=== PATIENT | male | born 1970 ===

== ENCOUNTER 2016-08-02 19:18 | Emergency (ER) | payer BC ==
[2016-08-02 19:35] VITALS: BP 160/91; PULSE 81; RESP 17; TEMP 98.5; O2SAT 99
[2016-08-02] MEDS ORDERED: cefTRIAXone (Rocephin) 250 mg Inj IM ONE (21:02)
--- NOTE | 2016-08-02 21:21 | ED PDOC ---
HPI: Male Pain Time Seen by Provider: 08/02/16 20:40 Chief Complaint (Nursing): Male Genitourinary Chief Complaint (Provider): Penile Redness/Swelling History Per: Patient History/Exam Limitations: no limitations Onset/Duration Of Symptoms: Hrs (x5.5) Current Symptoms Are (Timing): Still Present Associated Symptoms: Chills, Diarrhea (1 episode today, non-bloody/non-mucoid), Other (myalgias, pelvic pain; no rash). denies: Nausea, Vomiting, Back Pain, Urinary Symptoms (no dysuria/hematuria/penile d/c) Additional Complaint(s): Tuan Krueger is a 46 year old male, with no pertinent past medical history, who presents to the ED on 08/02/16 for the evaluation of penile erythema/ swelling that he had noted as of approximately 5.5 hours prior to arrival. Some associated chills, pelvic pain and myalgias (especially within the lower legs) also reported in addition to 1 episode of non-bloody/non-mucoid diarrhea that he had experienced earlier today. Denies fever, rash, back pain, nausea, vomiting, dysuria, frequency, hematuria or penile discharge. No analgesics taken prior to arrival. Of note, patient reports having engaged in a protected, 1 night stand last night with another woman whom he is not familiar with. He also regularly has unprotected sex with his . PMD: goes to [facility] as needed but no regular PMD Past Medical History Reviewed: Historical Data, Nursing Documentation, Vital Signs Vital Signs: Last Vital Signs Temp 98.5 F 08/02/16 19:31 Pulse 81 08/02/16 19:31 Resp 17 08/02/16 19:31 BP 160/91 H 08/02/16 19:31 Pulse Ox 99 08/02/16 19:31 - Medical History PMH: No Chronic Diseases - Surgical History Surgical History: No Surg Hx - Family History Family History: States: Diabetes - Living Arrangements Living Arrangements: With Family - Social History Current smoker - smoking cessation education provided: No Alcohol: None Drugs: Denies - Home Medications Home Medications: Ambulatory Orders Medication Instructions Recorded Acyclovir [Zovirax] 400 mg PO 5XD #50 tablet 08/02/16 Clotrimazole 1% Cream [Lotrimin 1%] 30 applic TOP BID #1 tube 08/02/16 Ibuprofen [Motrin Tab] 600 mg PO Q8 PRN #60 tab 08/02/16 - Allergies Allergies/Adverse Reactions: Allergies Allergy/AdvReac Type Severity Reaction Status Date / Time No Known Allergies Allergy Verified 08/02/16 19:35 Review of Systems ROS Statement: Except As Marked, All Systems Reviewed And Found Negative Constitutional: Positive for: Chills, Other (myalgias (especially within lower legs)) Gastrointestinal: Positive for: Diarrhea (1 episode today, non-bloody/non-mucoid ). Negative for: Nausea, Vomiting Genitourinary Male: Positive for: Other (penile swelling/erythema, pelvic pain) . Negative for: Dysuria, Frequency, Hematuria, Penile Discharge Skin: Negative for: Rash Physical Exam - Reviewed Nursing Documentation Reviewed: Yes Vital Signs Reviewed: Yes - Physical Exam Appears: Positive for: Well, Non-toxic, In Acute Distress (mild painful) Skin: Positive for: Normal Color, Warm, Dry. Negative for: Rash Gastrointestinal/Abdominal: Positive for: Soft, Tenderness (suprapubic). Negative for: Mass, Distended, Guarding, Rebound Male Genital Exam: Positive for: erythema (edema/erythema noted at base of glans w/some erythema also noted to glans itself; no outright rash or palpable mass), other (Examination chaperoned by Annabel Moreira RN). Negative for: testicular tenderness (R), testicular tenderness (L), urethral discharge Extremity: Positive for: Normal ROM (of b/l LE). Negative for: Deformity, Swelling Lymphatic: Positive for: Adenopathy (b/l inguinal, tender to palpation) Neurologic/Psych: Positive for: Alert, Oriented - Laboratory Results Result Diagrams: 08/02/16 22:00 08/02/16 22:00 - ECG O2 Sat by Pulse Oximetry: 99 (RA) Pulse Ox Interpretation: Normal Medical Decision Making Medical Decision Makin:40 Initial Impression: balanitis, posible STD Initial Plan: * Labs * Udip * RPR * Rapid HIV * Chlamydia/GC RNA * HSV 1/2(IGG), HSV (IGM) w/RF * Zithromax 1000mg PO * Rocephin 250mg PO * Motrin 600mg PO * Tylenol 975mg PO * Reevaluation Scribe Attestation: Documented by Malia Hernandez, acting as a scribe for Adrianne Tineo MD. Provider Scribe Attestation: All medical record entries made by the Scribe were at my direction and personally dictated by me. I have reviewed the chart and agree that the record accurately reflects my personal performance of the history, physical exam, medical decision making, and the department course for this patient. I have also personally directed, reviewed, and agree with the discharge instructions and disposition. Disposition - Clinical Impression Clinical Impression: Balanitis, Possible exposure to STD Counseled Patient/Family Regarding: Studies Performed, Diagnosis, Need For Followup, Rx Given - Disposition Disposition: Routine/Home Disposition Time: 22:00 Condition: IMPROVED Additional Instructions: YOU WILL BE CALLED IF YOUR RESULTS ARE ABNORMAL Prescriptions: Acyclovir [Zovirax] 400 mg PO 5XD #50 tablet Clotrimazole 1% Cream [Lotrimin 1%] 30 applic TOP BID #1 tube Ibuprofen [Motrin Tab] 600 mg PO Q8 PRN #60 tab PRN Reason: Pain, Moderate (4-7) Instructions: Safe Sex (ED), Balanitis (ED)
[2016-08-02] MEDS ORDERED: cefTRIAXone (Rocephin) 250 mg Inj ONE (21:25)
[2016-08-02] MEDS ORDERED: Sterile Water 10 ML IV ONE (21:26)
[2016-08-02 22:06] LABS: BASO # 0.1 K/uL (0.0-0.2); BASO % 0.7 % (0.0-2.0); EOS # 0.2 K/uL (0.0-0.7); EOS % 1.4 % (0.0-4.0); LYMPH # 0.9 K/uL (1.0-4.3); LYMPH % 7.5 % (20.0-40.0); MEAN CELL VOLUME 86.7 fl (80.0-94.0); MEAN CORPUSCULAR HEMOGLOBIN 29.7 pg (27.0-31.0); MEAN CORPUSCULAR HGB CONC 34.2 g/dL (33.0-37.0); MEAN PLATELET VOLUME 8.2 fl (7.2-11.7); MONO # 0.8 K/uL (0.0-0.8); MONO % 6.2 % (0.0-10.0); NEUT # 10.5 K/uL (1.8-7.0); NEUT % 84.2 % (50.0-75.0); NRBC % 0.1 % (0.0-0.0); PLATELET COUNT 211 K/uL (130-400); RED CELL DISTRIBUTION WIDTH 13.4 % (11.5-14.5); WHITE BLOOD COUNT 12.4 K/uL (4.8-10.8)
[2016-08-02 22:15] LABS: ALB/GLOB RATIO 1.4 (1.0-2.1); ALKALINE PHOSPHATASE 93 U/L (38-126); ALT/SGPT 38 U/L (21-72); AST/SGOT 29 U/L (17-59); BILIRUBIN,TOTAL 0.5 mg/dl (0.2-1.3); BLOOD UREA NITROGEN 14 mg/dl (9-20); CALCIUM 9.1 mg/dL (8.4-10.2); CARBON DIOXIDE 26 mmol/L (22-30); CHLORIDE 99 mmol/L (98-107); GFR AFRICAN-AMERICAN > 60; GLUCOSE,RANDOM 111 mg/dL (75-110); POTASSIUM 3.8 MMOL/L (3.6-5.0); SODIUM 134 mmol/l (132-148); TOTAL PROTEIN 7.2 G/DL (6.3-8.2)
[2016-08-02 22:32] LABS: BASOPHIL 1 % (0-2); EOSINOPHIL 2 % (0-7); NEUTROPHIL 80 % (42-75); TOTAL CELLS COUNTED 100
== END 2016-08-03 02:16 | disposition home or self-care (01) ==
LOC: H.ER 19:18
DX: N48.1 Balanitis (principal)
CPT/HCPCS: 80053; 85025; 86592; 86695; 86696; 87390; 87491; 87591; 96372; 99282; J0696

== ENCOUNTER 2016-08-26 18:15 | Emergency (ER) | payer SELFPAY ==
[2016-08-26 19:34] LABS: BASO % 0.5 % (0.0-2.0); EOS # 0.2 K/uL (0.0-0.7); EOS % 2.3 % (0.0-4.0); HEMATOCRIT 42.8 % (35.0-51.0); LYMPH # 1.5 K/uL (1.0-4.3); LYMPH % 17.9 % (20.0-40.0); MEAN CELL VOLUME 89.4 fl (80.0-94.0); MEAN CORPUSCULAR HEMOGLOBIN 29.9 pg (27.0-31.0); MEAN CORPUSCULAR HGB CONC 33.4 g/dL (33.0-37.0); MEAN PLATELET VOLUME 8.7 fl (7.2-11.7); MONO # 0.6 K/uL (0.0-0.8); MONO % 7.7 % (0.0-10.0); NEUT # 5.9 K/uL (1.8-7.0); NEUT % 71.6 % (50.0-75.0); RED CELL DISTRIBUTION WIDTH 13.3 % (11.5-14.5); WHITE BLOOD COUNT 8.3 K/uL (4.8-10.8)
[2016-08-26 19:48] LABS: ALB/GLOB RATIO 1.6 (1.0-2.1); ALKALINE PHOSPHATASE 66 U/L (38-126); ALT/SGPT 40 U/L (21-72); AST/SGOT 29 U/L (17-59); BILIRUBIN,TOTAL 0.5 mg/dl (0.2-1.3); BLOOD UREA NITROGEN 12 mg/dl (9-20); CALCIUM 9.1 mg/dL (8.4-10.2); CARBON DIOXIDE 24 mmol/L (22-30); CHLORIDE 105 mmol/L (98-107); GFR AFRICAN-AMERICAN > 60; GLUCOSE,RANDOM 97 mg/dL (75-110); POTASSIUM 3.6 MMOL/L (3.6-5.0); SODIUM 139 mmol/l (132-148); TOTAL PROTEIN 7.1 G/DL (6.3-8.2)
[2016-08-26 20:11] LABS: PARTIAL THROMBOPLASTIN TIME 26.6 SECONDS (23.3-32.5)
[2016-08-26 20:49] LABS: RBC URINE 1 /hpf (0-3); URINE BACTERIA RARE (<OCC); URINE BILIRUBIN NEGATIVE (NEGATIVE); URINE BLOOD NEGATIVE (NEGATIVE); URINE COLOR STRAW (YELLOW); URINE GLUCOSE (UA) NEG (Normal); URINE KETONE NEGATIVE (NEGATIVE); URINE LEUKOCYTE ESTERASE NEG Leu/uL (Negative); URINE PROTEIN NEGATIVE (NEGATIVE); URINE UROBILINOGEN 0.2-1.0 mg/dL (0.2-1.0); WBC URINE 1 /hpf (0-5)
[2016-08-26 21:17] VITALS: BP 133/94; PULSE 65; RESP 16; TEMP 97.9; O2SAT 100
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
--- NOTE | 2016-08-28 01:28 | CARD ---
APPROVED REPORT EKG Measurement Heart [id number] <Conclusion> Normal sinus rhythm Normal ECG
== END 2016-08-26 22:31 | disposition home or self-care (01) ==
LOC: H.ER 18:15
DX: F41.9 Anxiety disorder, unspecified (principal)
CPT/HCPCS: 80053; 81003; 84484; 85025; 85610; 85730; 86592; 87390; 93005; 99284; G0480

== ENCOUNTER 2017-10-25 18:02 | Emergency (ER) | payer OTHER, MEDICAID ==
[2017-10-25 18:16] VITALS: RESP 18; TEMP 98.7
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
[2017-10-25 19:54] LABS: BASO # 0.1 K/uL (0.0-0.2); BASO % 0.6 % (0.0-2.0); EOS # 0.1 K/uL (0.0-0.7); EOS % 1.2 % (0.0-4.0); HEMOGLOBIN 14.8 g/dL (12.0-18.0); LYMPH # 1.9 K/uL (1.0-4.3); MEAN CELL VOLUME 87.9 fl (80.0-94.0); MEAN CORPUSCULAR HEMOGLOBIN 29.6 pg (27.0-31.0); MEAN CORPUSCULAR HGB CONC 33.7 g/dL (33.0-37.0); MEAN PLATELET VOLUME 8.4 fl (7.2-11.7); MONO # 0.9 K/uL (0.0-0.8); MONO % 8.5 % (0.0-10.0); NEUT # 7.9 K/uL (1.8-7.0); NEUT % 72.7 % (50.0-75.0); RBC 5.01 Mil/uL (4.40-5.90); RED CELL DISTRIBUTION WIDTH 13.3 % (11.5-14.5); WHITE BLOOD COUNT 10.9 K/uL (4.8-10.8)
[2017-10-25 20:17] LABS: ALB/GLOB RATIO 1.5 (1.0-2.1); ALBUMIN 4.5 g/dL (3.5-5.0); ALT/SGPT 43 U/L (21-72); AST/SGOT 34 U/L (17-59); BLOOD UREA NITROGEN 11 mg/dl (9-20); CALCIUM 9.4 mg/dL (8.4-10.2); GFR AFRICAN-AMERICAN > 60; GFR NON-AFRICAN AMERICAN > 60
[2017-10-25 20:50] VITALS: BP 121/83; PULSE 62; O2SAT 95
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
== END 2017-10-25 20:53 | disposition home or self-care (01) ==
LOC: H.ER 18:02
DX: S09.90XA Unspecified injury of head, initial encounter (principal); S20.219A Contusion of unspecified front wall of thorax, initial encounter; S69.92XA Unspecified injury of left wrist, hand and finger(s), initial encounter; V43.52XA Car driver injured in collision with other type car in traffic accident, initial encounter; Y92.410 Unspecified street and highway as the place of occurrence of the external cause